=== PATIENT | male | born 1950 | race Caucasian/White ===

== ENCOUNTER 2016-08-08 06:45 | Observation (INO) | payer OTHER ==
[~2016-08-08] VITALS: Ht 180.3 cm; Wt 104.0 kg
[2016-08-08] VITALS (11 sets, daily range): BP systolic 116–151; BP diastolic 65–92; PULSE 64–81; TEMP 36.2–36.8; O2SAT 92–96; Ht 180.3 cm; Wt 104.0 kg
[~2016-08-08 06:45] MED LIST: ASPI81TA28 PO; ATEN-173 PO; CLOP1TAB5 PO; CRS/10 PO; MULT-513 PO; NXM/40 PO; OMEG10007 PO
[2016-08-08] MEDS ORDERED: RANO500T PO (06:50)
[2016-08-08] MEDS ORDERED: CHOL1CAP67 PO (06:50)
[2016-08-08] MEDS ORDERED: NTRGSL/4 UT (06:50)
[2016-08-08] MEDS ORDERED: MELO7.5T5 PO (06:50)
[2016-08-08] MEDS ORDERED: LEVO75TA5 PO (06:50)
[2016-08-08] MEDS ORDERED: VITACAP37 PO (06:50)
[2016-08-08] MEDS ORDERED: FINA5TAB PO (06:50)
[2016-08-08] MEDS ORDERED: GLUCTAB18 PO (06:50)
[2016-08-08] MEDS ORDERED: B-CO-25 PO (06:50)
[2016-08-08] MEDS ORDERED: AZEL0.15 NAE (06:50)
[2016-08-08] MEDS ORDERED: ROSU20TA PO (06:50)
[2016-08-08] MEDS ORDERED: ACYC1CAP8 PO (06:50)
[2016-08-08] MEDS ORDERED: ALBU18002 (07:18)
[2016-08-08] MEDS ORDERED: FENTANYL CITRATE INJ 50 MCG/1 ML 2 ML VIAL ONE (07:28)
[2016-08-08] MEDS ORDERED: HEPARIN SOD (PORCINE) 1000 UNIT/ML 10 ML VIAL ONE ×2 (07:28→08:47)
[2016-08-08] MEDS ORDERED: DiphenhydrAMINE HCL 50 MG/ML VIAL ONE (07:28)
[2016-08-08] MEDS ORDERED: NiCARDipine HCL INJ 2.5 MG/ML 10 ML AMP ONE (07:28)
[2016-08-08] MEDS ORDERED: MIDAZOLAM HCL 1 MG/ML 2ML VIAL ONE (07:28)
[2016-08-08] MEDS ORDERED: NITROGLYCERIN/D5W 100MCG/ML 20ML SYR ONE (07:29)
[2016-08-08] MEDS ORDERED: CLOPIDOGREL BISULFATE 300 MG TAB PO ONE (09:46)
[2016-08-08] MEDS ORDERED: NURSING VERBAL MED ORDER ONE (10:30)
[2016-08-08] MEDS: SODIUM CHLORIDE 0.9% 1000ML 1,000 ML IV SCH (10:47)
[2016-08-08] MEDS ORDERED: IV FLUIDS COMPLETED PRN (12:00)
[2016-08-08] MEDS ORDERED: NITROGLYCERIN 0.4 MG SL PER TAB CHARGE UT PRN (14:00)
[2016-08-08] MEDS ORDERED: SODIUM CHLORIDE 0.9% 1000ML 1,000 ML IV SCH (14:00)
[2016-08-08] MEDS ORDERED: ACETAMINOPHEN 325 MG TAB PO PRN (14:00)
[2016-08-08] MEDS: ACYCLOVIR 200 MG CAP PO SCH (19:25)
[2016-08-08] MEDS: PANTOprazole SOD 40 MG TAB PO SCH (19:25)
--- NOTE | 2016-08-08 22:05 | Procedure Note ---
Pre-Mod Sedation Assessment General Date of Moderate Sedation: Aug 08, 2016. Vital Signs: Vital Signs Past 12 Hours Date Time Temp Pulse Resp B/P Pulse Ox O2 Delivery O2 Flow Rate FiO2 08/08/16 20:00 Room Air 08/08/16 18:54 36.8 74 18 117/68 95 Room Air 08/08/16 16:00 Room Air 08/08/16 15:16 36.7 75 18 116/65 96 Room Air 08/08/16 12:44 76 20 133/78 08/08/16 12:00 Room Air 08/08/16 11:35 66 18 142/78 08/08/16 11:20 64 18 137/74 08/08/16 11:05 64 18 139/75 08/08/16 10:50 64 20 142/78 08/08/16 10:32 36.6 67 20 144/70 92 08/08/16 10:22 36.6 67 18 144/70 93 Room Air Review Cardiovascular: regular rate, rhythm, no edema, no gallop Abdomen: normal bowel sounds, non tender, soft Lungs: chest non-tender, lungs clear Airway Class: II Pre-Sedation Airway Assessment Oral Cavity: WNL Short Thick Neck: No Hx of Sleep Apnea: Yes Smoking Status: Former Smoker Mallampati Classification: Class II ASA Classification: Class II Procedure Planning Contraindications-for Mod Sed: None Yes Notes The planned sedation has been discussed with the patient and consent obtained. I have identified the patient, determined the appropriateness of sedation and have assessed the patient immediately prior to the procedure. All medicine(s) and interventions are by my order.
--- NOTE | 2016-08-08 22:06 | Procedure Note ---
Post-Mod Sedation Assessment General Date of Moderate Sedation Aug 08, 2016. Vital Signs: Vital Signs Past 12 Hours Date Time Temp Pulse Resp B/P Pulse Ox O2 Delivery O2 Flow Rate FiO2 08/08/16 20:00 Room Air 08/08/16 18:54 36.8 74 18 117/68 95 Room Air 08/08/16 16:00 Room Air 08/08/16 15:16 36.7 75 18 116/65 96 Room Air 08/08/16 12:44 76 20 133/78 08/08/16 12:00 Room Air 08/08/16 11:35 66 18 142/78 08/08/16 11:20 64 18 137/74 08/08/16 11:05 64 18 139/75 08/08/16 10:50 64 20 142/78 08/08/16 10:32 36.6 67 20 144/70 92 08/08/16 10:22 36.6 67 18 144/70 93 Room Air Review - Discharge Criteria Vital Signs Stable: Yes Alert/Oriented/Conversant: Yes Returned to Baseline Mental St: Yes Nausea Absent/Minimal: Yes Pain/Discomfort/Absent/Minimal: Yes Normal/Baseline Respirations: Yes Active Bleeding?: No Pt Received D/C Instructions: N/A Prescriptions Given: None Specific Proced. D/C Criteria Distal Pulses Present (Cardiac: Yes Groin site assessed-Card Cath: N/A Voided Prior To Discharge: N/A Discharged Patients Adult Escort/Transportation: N/A
--- NOTE | 2016-08-08 23:43 | Cardiac Catheterization ---
Procedure Note Procedure Date Aug 08, 2016. Pre-Procedure Diagnosis Angina AUC Score 7 Post-Procedure Diagnosis Severe CAD, Successful PCI, Normal Intracardiac Pressures Procedure(s) Performed Coronary Angiography, Left Heart Cath, Drug Eluting Stent, IVUS Pickler Helper Dr. Salcedo Geothermal Installer(s) Glunt Estimated Blood Loss 25 Medication(s) Clopidogrel, Fentanyl, Heparin, Nitroglycerin, Versed, Lidocaine 1% Summary of Findings Indication: Accelerating angina despite anti-anginals Access: 6Fr Right Radial Artery Catheters: [place], EBU 3.5 Findings: LM - Distal 20% stenosis LAD - 40% ostial stenosis, 95% in-stent restenosis at distal aspect of most proximal stent, 30-40% diffuse instent restenosis in proximal aspect of more distal stents. Distal segment luminal irregularities. 1st diagonal with 30% ostial stenosis. Circumflex - Proximal 20-30% stenosis, luminal irregularities in distal circumflex and obtuse marginals RCA - Non-dominant, luminal irregularities LVEDP - 12 Arterial Closure: TR Band PCI: Antithrombotic therapy: Heparin, Clopidogrel Procedure: BMW wire passed into distal LAD Mid LAD lesion predilated with 2.5 compliant balloon IVUS used to assess extent of lesion, causes of stent failure. Noted to have severe instent restenosis at the overlap of prior stents 3.0 Angiosculpt balloon used to modify intrastent plaque Lesion stented with 3.0 x 26 Resolute ELIZABETH IVUS stent assessment showed underexpansion in the proximal segment Stent post-dilated with 3.5 NC balloon. Post procedure stent well-expanded, minimal residual stenosis, no apparent coronary complications. Summary: 1. Severe single vessel coronary artery disease - 95% severe mid LAD in-stent restenosis 2. Normal intracardiac filling pressures 3. Successful PCI of mid LAD ISR with IVUS guidance, Angiosculpt balloon, and 1 ELIZABETH (3.0 x 26 Resolute ELIZABETH post-dilated with 3.5 NC balloon) Recommendations: Admit to telemetry for observation Loaded with 300mg plavix in label cutter Continue DAPT with ASA/Plavix for at least 6 months. Likely continue DAPT long- term in the setting of overlapping stents Continue current antihypertensives, high-dose statin Cardiac Rehab Hemodynamics Rest Ao: 110/67/87 Final Ao: 116/67/90 LV: 114/12 Recommendations PCI without planned CABG Specimens None Radiation Exposure (mGy) 2971 Contrast (mls) 180 Visipaque Fluids (cc crystalloids) 180 NS Drains none Anesthesia moderate Procedural Complication(s) None Disposition PCU ACC Data Cardiac Status Clinical evaluation leading to the procedure CAD Presntation: Unstable angina Anginal Classification: CCS III Heart Failure: No, NYHA Class: CCS I Cardiogenic Shock w/in 24Hrs: No Cardiac Arrest w/in 24Hrs: No Imaging studies past 6 months: No Stress studies past 6 months: No Standard Exercise Stress Test: No Stress Echocardiogram: No Stress Testing w/SPECT MPI: No Cardiac CTA: No Coronary Anatomy Dominant: Left Left Main (% Stenosis): Distal (20) LAD (% Stenosis): Proximal (40), Mid (95) D1 (% Stenosis): Ostial Circumflex (% Stenosis): Proximal (20-30) Diagnostic Physician's Name: Rupert Salcedo MD Status: Elective Closure Device Percutaneous Entry Location: Radial Closure Device: Radial Band Recommendations: PCI without planned CABG PCI Indication: Unstable Angina Lesion Segment Name: mid LAD Culprit Artery: Yes Stenosis Prior to Rx (%): 90 Chronic Total Occlusion: No IVUS: Yes FFR: No Pre-Procedure MADDISON Flow: 3 Previously Treated Lesion: Yes Treated Lesion: Timeframe: greater than 2 years Treated with Stent: Yes In-Stent Restenosis: Yes In-Stent Thrombosis: No Stent Type: ELIZABETH Lesion Complexity: High/C Lesion Length (mm): 18 Thrombus Present: No Bifurcation Lesion: No Guidewire Across Lesion: Yes Guidewire: Post-Procedure MADDISON Flow: 3 Device(s) Deployed: Yes Type of Device(s): 3.0x26 Resolute ELIZABETH Intraprocedure Events Significant Dissection: No Perforation: No
[2016-08-09] MEDS: SODIUM CHLORIDE 0.9% 1000ML 1,000 ML IV SCH (01:11)
[2016-08-09 03:15] VITALS: BP 128/71; PULSE 73; TEMP 36.8; O2SAT 96
[2016-08-09] MEDS ORDERED: LEVOTHYROXINE 75 MCG TAB PO SCH (06:00)
[2016-08-09 07:04] LABS: BASO % 0.1 %; BASO ABS # 0.01 K/uL (0-0.2); COMPLETE YES; EOS % 0.1 %; HEMATOCRIT 35.8 % (42-52); IG% 0.1 %; LYMPH % 24.1 %; LYMPH ABS # 2.03 K/uL (1.2-3.4); MEAN CELL VOLUME 90.2 fL (80-100); MEAN CORPUSCULAR HEMOGLOBIN 32.7 pg (25-34); MEAN CORPUSCULAR HGB CONC 36.3 g/dl (32-36); MEAN PLATELET VOLUME 8.8 fL (7.4-10.4); MONO % 9.5 %; NEUT % 66.1 %; PLATELET COUNT 137 K/uL (130-400); RED BLOOD COUNT 3.97 M/uL (4.7-6.1); WHITE BLOOD COUNT 8.41 K/uL (4.8-10.8)
[2016-08-09 07:33] LABS: BUN/CREATININE RATIO 25.6 (10-20); CALCIUM 7.8 mg/dl (8.5-10.1); POTASSIUM 3.9 mmol/L (3.5-5.1)
[2016-08-09] MEDS: ACYCLOVIR 200 MG CAP PO SCH (07:36)
[2016-08-09] MEDS: PANTOprazole SOD 40 MG TAB PO SCH (07:36)
[2016-08-09 08:36] VITALS: BP 134/75; PULSE 72; TEMP 36.7; O2SAT 96
[2016-08-09] MEDS ORDERED: CLOPIDOGREL BISULFATE 75 MG TAB PO SCH ×2 (09:00→21:00)
[2016-08-09] MEDS ORDERED: FINASTERIDE 5 MG TAB PO SCH ×2 (09:00→21:00)
[2016-08-09] MEDS ORDERED: CEROVITE ADV FORMULA TAB PO SCH (09:00)
[2016-08-09] MEDS ORDERED: ROSUVASTATIN CALCIUM 20 MG TAB PO SCH ×2 (09:00→21:00)
[2016-08-09] MEDS ORDERED: ASPIRIN 81 MG ECTAB PO SCH ×2 (09:00→21:00)
--- NOTE | 2016-08-09 09:36 | Discharge Instructions ---
Discharge Instructions Procedure Procedure Date: Aug 09, 2016. Reason for Visit: Atypical Chest Pain Dr Salcedo To Do. Discharge Discharge Date: Aug 09, 2016. Discharge Diagnosis: Coronary artery disease post stenting Last Recorded Wt (Kilograms): 104.000 Instructions Allergies: Uncoded Allergies: IVP DYE (Allergy, Unknown, ANAPHYLAXIS, 11/17/13) Provider Instructions ACTIVITY RECOMMENDATIONS: It is common to feel weak and fatigue for a few days. * Do not drive or operate any motorized equipment for the next day. * Limit stair usage (2 or 3 trips a day only) for the next three days. * Do not lift anything heavier than 10 pounds for the next three days. * Do not engage in vigorous exercise or any sports for the next five days. * You may shower the day after your procedure, but do not immerse the area for three days. Cleanse the site gently with soap and water. SPECIAL CARE INSTRUCTIONS: * You may replace the pressure dressing or band-aid the morning after the procedure. * After your procedure, it is normal to have a small bruise or small lump at the site. Examine your site daily for any change in the bruise or lump, redness, swelling, drainage or numbness. Notify your doctor if any change. BLEEDING: * If there is a small amount of bleeding at the site, lie down and apply firm pressure with a clean cloth for ten minutes. When the bleeding stops, lie quietly keeping the procedure limb straight for six hours. Notify your doctor as soon as possible. * If the bleeding does not stop after ten minutes or if there is a large amount of bleeding or spurting, call 911 immediately. Continue to lie down and hold firm pressure until help arrives. SKIN IRRITATION: * You may experience some redness and/or swelling in the area where radiation was administered. If any skin irritation occurs, please contact your family physician. FOLLOW UP VISIT: Keep any scheduled doctor appointments. Follow Up Follow-up with: Follow-up with Dr. Salcedo in 3-4 weeks. Mando Harris Recommendations: Call your doctor if: * Temperature above 101 degrees * Pain not relieved by pain medicine ordered * There is increased drainage or redness from any incision * You have any unanswered questions or concerns. Your Doctors Instructions noted above were prepared by provider Teodoro Salcedo. Patient Signature Section: Patient Instructions Signature Page Zander Lewis Patient (or Guardian) Signature/Date: I have read and understand the instructions given to me by my caregivers. Caregiver/RN/Doctor Signature/Date: The above-named patient and/or guardian has received patient instructions on this date. + Original Patient Signature Page (only) stays with chart. Please make copy for patient.
[2016-08-09 10:27] VITALS: BP 128/71; PULSE 73; TEMP 36.8; O2SAT 96
--- NOTE | 2016-08-12 08:07 | DISCHARGE SUMMARY ---
PRINCIPAL DIAGNOSIS: 1. Coronary artery disease. 2. Accelerated stable angina. PROCEDURES: 1. Coronary angiography - left main 20% stenosis, LAD 40% ostial stenosis, 95% in-stent proximal and mid LAD stenosis, 20% proximal circumflex stenosis nondominant right with luminal irregularities. 2. PCI 3.0 x 26 Resolute drug eluding stent placed to proximal to mid LAD IVUS guidance, post-dilated to 3.5. HISTORY OF PRESENT ILLNESS: Mr. Canales is a very pleasant 66-year-old man with a history of coronary artery disease status post multiple prior stents to his proximal mid LAD. He presented as an outpatient with his prior typical anginal symptoms over the last several weeks. Due to patient's severe coronary artery disease history and recurrence of his prior typical symptoms decision was made to proceed directly to cardiac catheterization. HOSPITAL COURSE: Cardiac catheterization revealed 95% in-stent restenosis in his LAD and decision was made to proceed with PCI. IVUS was used to assess lesion and cause of the stent failure and was noted to have severe in-stent restenosis at the site of prior stent overlap. This lesion was predilated with an AngioSculpt balloon before being treated with one drug eluding stent (3.0 x 26 Resolute) post-dilated to 3.5. Procedure was uncomplicated and postprocedure he was admitted to the telemetry for further observation. Overnight he had no additional events. He remained chest pain free and on the morning of discharge he was feeling well. He was discharged on dual antiplatelet therapy with aspirin and Plavix as well as prior cardiac regimen. The patient will followup with me in 2-4 weeks. DISCHARGE MEDICATIONS: 1. Acyclovir 200 mg b.i.d. 2. Albuterol inhaler p.r.n. 3. Aspirin 81. 4. Atenolol 12.5 mg b.i.d. 5. Astepro nasal injection. 6. Cholecalciferol 1000 units p.o. daily. 7. Plavix 75 mg a day. 8. Nexium 40 mg b.i.d. 9. Finasteride 5 mg daily. 10. Fish oil one cap daily. 11. Levothyroxine 35 mcg daily. 12. Meloxicam 7.5 mg p.r.n. 13. Multivitamin one tab daily. 14. Nitroglycerin 0.4 mg sublingual p.r.n. 15. Ranexa 500 mg b.i.d. 16. Rosuvastatin 20 mg daily. FOLLOWUP: Followup with cardiology clinic Dr. Salcedo in 2-4 weeks.
== END 2016-08-09 10:30 | disposition home or self-care (01) ==
LOC: C.CATH 06:45 → C.2T 10:24
PROVIDERS: ADMIT Internal Medicine Interventional Cardiology; ATTEND Internal Medicine Interventional Cardiology
DX: I25.119 Atherosclerotic heart disease of native coronary artery with unspecified angina pectoris (principal); G47.30 Sleep apnea, unspecified; E78.5 Hyperlipidemia, unspecified; I10 Essential (primary) hypertension; E03.9 Hypothyroidism, unspecified; K21.9 Gastro-esophageal reflux disease without esophagitis; Z79.82 Long term (current) use of aspirin; Z91.041 Radiographic dye allergy status; Z80.7 Family history of other malignant neoplasms of lymphoid, hematopoietic and related tissues; Z82.49 Family history of ischemic heart disease and other diseases of the circulatory system; Z80.0 Family history of malignant neoplasm of digestive organs; Z83.3 Family history of diabetes mellitus

== ENCOUNTER → 2016-09-01 | Outpatient (CLI) | payer OTHER ==
[~2016-09-01] MED LIST changes: +ACYC1CAP8 PO; +ALBU18002; +AZEL0.15 NAE; +CHOL1CAP67 PO; -CRS/10 PO; +FINA5TAB PO; +LEVO75TA5 PO; +MELO7.5T5 PO; +NTRGSL/4 UT; +RANO500T PO; +ROSU20TA PO
[2016-09-01 13:13] LABS: BLOOD UREA NITROGEN 26 mg/dl (7-18); BUN/CREATININE RATIO 23.2 (10-20); CALCIUM 8.6 mg/dl (8.5-10.1); CARBON DIOXIDE 27 mmol/L (21-32); CHLORIDE 105 mmol/L (98-107); GLUCOSE 111 mg/dl (70-99); POTASSIUM 4.4 mmol/L (3.5-5.1); SODIUM 141 mmol/L (136-145)
== END | disposition home or self-care (01) ==
LOC: C.LABBFT 08:18
PROVIDERS: ATTEND Internal Medicine Interventional Cardiology
DX: Z01.818 Encounter for other preprocedural examination (principal)